=== PATIENT | female | born 1955 | race Caucasian/White ===

== ENCOUNTER → 2023-12-05 14:03 | Outpatient (REF) | payer OTHER, SELFPAY | LOC: HWRAD 14:03 | PROVIDERS: ATTENDING PHYSICIAN Family Medicine | DX: Z12.31 Encounter for screening mammogram for malignant neoplasm of breast (principal); M85.80 Other specified disorders of bone density and structure, unspecified site | CPT/HCPCS: 77063; 77067; 77080 ==

== ENCOUNTER 2024-11-05 06:24 | Day surgery (SDC) | payer OTHER, SELFPAY | END 2024-11-05 11:33 | disposition home or self-care (01) | LOC: GI 06:24 | PROVIDERS: ATTENDING PHYSICIAN Internal Medicine Gastroenterology | DX: Z12.11 Encounter for screening for malignant neoplasm of colon (principal); K57.30 Diverticulosis of large intestine without perforation or abscess without bleeding; K64.8 Other hemorrhoids | CPT/HCPCS: G0121 ==